=== PATIENT | female | born 1980 ===

== ENCOUNTER 2019-08-25 06:11 | Day surgery (SDC) | payer BC ==
--- NOTE | 2019-08-24 22:19 | Brief Operative Note ---
Immediate Post Operative Note Operative Note Chief Complaint: SInus pain, mostly left side S/P dental implant Pre-op Diagnosis: Chronic sinusitis S/P dental implant left maxilla. CT indicates worsening disease from day of implant to a few weeks later. Has failed a few rounds of antibiotics. Procedure: 1. Roy endoscopic sinus surgery 2. Septoplasty 3. SMR inf right turbinate 4. SMR inf left turbinate Post-op Diagnosis: same as pre-op Surgeon: Omar Fried Inventory Checker: none Additional Surgeons: none Anesthesiologist: Monique ENG Anesthesia: general Specimen: yes - Left maxillary sinus, pathology and C/S aerobic, aneroibic, fungal. Complications: none Condition: stable Fluids: D5LR Estimated Blood Loss: volume - 200 cc Drains: none Packing: Naso Sinus gel Implant(s) used?: No Omar Fried MD Aug 24, 2019 22:19
--- NOTE | 2019-08-24 22:22 | Discharge Instructions ---
Discharge Instructions Discharge Instructions Follow up with: Dr. Fried's office next week Diet: regular Resume Normal Activity?: No Activity: light activity Pneumonia Vaccine: pt refused vaccine Influenza Vaccine (Jun to Nov): pt refused vaccine Follow Up Orders ice to face x 48 hours Pt has printed pre and post op instructions Return to Work/School on: Sep 07, 2019 For Congestive Heart Failure Reminder Report to your physician any weight gain of 5 pounds or more in one week. Omar Fried MD Aug 24, 2019 22:22
--- NOTE | 2019-08-24 22:29 | Pre-Procedure Note/Attestation ---
Pre-Procedure Note/Attestation Complete Prior to Procedure Planned Procedure: bilateral Procedure Narrative: 1. Roy endoscopic sinus surgery 2. Septoplasty 3. SMR inf right turbinate 4. SMR inf left turbinate Indications for Procedure Pre-Operative Diagnosis: Chronic sinusitis S/P dental implant left maxilla. CT indicates worsening disease from day of implant to a few weeks later. Has failed a few rounds of antibiotics. Attestation I attest that I discussed the nature of the procedure; its benefits; risks and complications; and alternatives (and the risks and benefits of such alternatives ), prior to the procedure, with the patient (or the patient's legal paper sales representative). I attest that, if there was a reasonable possibility of needing a blood transfusion, the patient (or the patient's legal paper sales representative) was given the [facility] standardized written summary, pursuant to the Brendon Brianna Blood Safety Act ([place] Health and Safety Code # 1645, as amended). I attest that I re-evaluated the patient just prior to the surgery and that there has been no change in the patient's H&P, Omar Fried MD Aug 24, 2019 22:29
[2019-08-25] VITALS (10 sets, daily range): BP systolic 118–137; BP diastolic 73–82
[~2019-08-25] VITALS: Ht 167.6 cm; Wt 68.5 kg
--- NOTE | 2019-08-25 05:15 | Pre-op HX & Phy Repo 2 SIG ---
DATE OF ADMISSION: 08/25/2019 DATE OF SURGERY: 08/25/2019. INDICATION FOR PROCEDURE: The patient had a dental implant placed in the left maxilla approximately 1 month or so ago. Had a CT scan done that day, minimal if any disease. Within a few weeks, she had an extensive disease in the left side of her sinus. She ultimately last week had the implant removed. No drainage. It appeared as the capsule between the mouth and floor of the left maxillary sinus. She is having surgery to reduce the amount of infection in the sinuses and identify the proper etiologic agent and had it treated with appropriate antibiotics via culture and sensitivity as well as pathology. This is not a surgery to clean out every little disease in her sinuses and she understands that. At this point on CT scan, there is no indication of osteomyelitis. ALLERGIES: She is allergic to penicillin for which she has a rash, she does tolerate Ceftin which recently she used and does okay with it without a rash. PAST MEDICAL HISTORY: Significant for bradycardia, acute sinusitis. No arthralgia of the bilateral TMJs. SOCIAL HISTORY: She is a nonsmoker, light drinker. , 1 child. 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 PAST SURGICAL HISTORY: , breast reduction. PHYSICAL EXAMINATION: GENERAL: The patient is a 38-year-old, who is 5 feet 6 inches, 152 pounds, BMI 24.53. VITAL SIGNS: Blood pressure 120/80, temperature 98.5, pulse 72, and respiratory rate 14. This was as of last week 08/17/2019 when I saw her in the office at approximately 10:30. HEENT: Head, normocephalic. Eyes, PERRLA, EOMI. Lips and tongue normal. Septal deviation and hypertrophied right and left inferior turbinates. NECK: Normal. Some tenderness on the left maxillary sinus and swelling inside her nose more on the left than the right. CHEST: Clear. HEART: Normal S1, S2. No S3 or S4. No murmur, bruit, gallop, or rub. EXTREMITIES: Grossly normal. GENITOURINARY: Not done, not indicated for this procedure. She is followed normally by an PHOTOGRAPHIC SUPERVISOR. ASSESSMENT: She is a candidate for endoscopic sinus surgery, septoplasty, submucous resection right and inferior turbinate. PLAN: Surgery as scheduled. The patient has signed consent. Reviewed pre and postop care. Omar Fried M.D. DR: MICHAELLE JOB#: [id number] CC: NEY
[~2019-08-25 06:11] MED LIST: AMOXICILLIN500 MG ORAL; IBUPROFEN600 MG ORAL; NORCO 5-325 TA1 EACH ORAL; TYLENOL EXTRA500 MG ORAL
[2019-08-25] MEDS ORDERED: ceFAZolin sod 1 GM in D5W 55 ML IV ONE (07:15)
[2019-08-25] MEDS ORDERED: Dexamethasone 4mg/ml vial IVP ONE (07:30)
[2019-08-25] MEDS ORDERED: Sterile Water Irrig 1000ml IRRIG ONE (08:15)
[2019-08-25] MEDS ORDERED: NS Irrig 1000ml ONE (08:15)
[2019-08-25] MEDS ORDERED: LR 1000ml ONE (08:15)
[2019-08-25] MEDS ORDERED: fentaNYL 100 mcg/2 mL IV ONE ×2 (08:20→09:01)
[2019-08-25] MEDS ORDERED: Midazolam 2mg/2ml Inj ONE (08:21)
[2019-08-25] MEDS ORDERED: Lidocaine 1% 10mg/ml/Epi 0.005mg/ml 30ml vial INJ ONE (08:22)
[2019-08-25] MEDS ORDERED: Bupivacaine w/Epi 0.5% 30ml Vial INJ ONE (08:22)
[2019-08-25] MEDS ORDERED: Cocaine HCl 4% 4ml vial TOPIC ONE (08:22)
[2019-08-25] MEDS ORDERED: Lidocaine 1% MPF 10mg/ml 5ml ONE (08:55)
[2019-08-25] MEDS ORDERED: Metoclopramide 10mg/2ml Inj ONE (08:55)
[2019-08-25] MEDS ORDERED: Propofol 200mg/20ml IV ONE (08:55)
[2019-08-25] MEDS ORDERED: Dexamethasone 4mg/ml vial ONE (08:55)
[2019-08-25] MEDS ORDERED: CEPHALEXIN500 MG ORAL (09:27)
[2019-08-25] MEDS ORDERED: HYDROmorphone 1mg/ml Carpuject SUBQ PRN (09:30)
[2019-08-25] MEDS ORDERED: Metoclopramide 10mg/2ml Inj IVP PRN (09:30)
[2019-08-25] MEDS ORDERED: HYDROcodone/Acetamin 5/325 tab ORAL PRN (09:30)
--- NOTE | 2019-08-25 09:37 | Anethesia Preoperative Eval ---
Anesthesia Pre-op PMH/ROS General Date of Evaluation: Aug 25, 2019 Time of Evaluation: 08:15 Anesthesiologist: Morteza ASA Score: ASA 2 Mallampati Score Class I : Soft palate, uvula, fauces, pillars visible Class II: Soft palate, uvula, fauces visible Class III: Soft palate, base of uvula visible Class IV: Only hard plate visible Mallampati Classification: Class I Surgeon: Corky Diagnosis: Sinusitis Surgical Procedure: Roy Endo Sinus Surgery Anesthesia History: PONV Family History: no anesthesia problems Allergies: Uncoded Allergies: RAW ONIONS (Allergy, Intermediate, MIGRAINES, 08/24/19) amoxicilin (Allergy, Mild, SKIN RASH, 08/24/19) Medications: see eMAR Patient NPO?: Yes NPO Date: Aug 25, 2019 NPO Time: 00:01 Past Medical History Cardiovascular: Denies: HTN, CAD, AR, valve dz, arrhythmia, other Pulmonary: Denies: asthma, COPD, RENZO, other Gastrointestinal/Genitourinary: Denies: GERD, CRI, ESRD, other Neurologic/Psychiatric: Reports: depression/anxiety; Denies: dementia, CVA, TIA, other Endocrine: Denies: DM, hypothyroidism, steroids, other HEENT: Denies: cataract (L), cataract (R), glaucoma, ANGOON (L), ANGOON (R), other Hematology/Immune: Denies: anemia, DVT, bleeding disorder, other PSxH Narrative: breast reduction Anesthesia Pre-op Phys. Exam Physician Exam Last Vital Signs Date Time Temp Pulse Resp B/P (MAP) Pulse Ox O2 Delivery O2 Flow Rate FiO2 08/25/19 07:02 Room Air 08/25/19 06:50 97.7 66 18 118/73 98 Constitutional: NAD Neurologic: CN 2-12 intact Cardiovascular: RRR Respiratory: CTA Gastrointestinal: S/NT/ND Airway Exam Mallampati Classification 1 Mallampati Score: Class I MO: full Neck: normal TMD: 2fb ROM: full Dentures: no upper, no lower Anesthesia Pre-op A/P Labs Urine Test Test 08/25/19 06:25 Urine HCG, Qualitative Negative (NEGATIVE) Risk Assessment & Plan Assessment: Denies changes in health Plan: General LMA Status Change Before Surgery: No Pre-Antibiotics Drug: ancef Given Within 1 Hr of Incision: Yes Time Given: 08:35 Monique Pro BUILDING MOVER Aug 25, 2019 09:37
--- NOTE | 2019-08-25 09:38 | Immediate Post-Op Evaluation ---
Immediate Post-Op Evalulation Immediate Post-Op Evalulation Procedure: Roy Endo Sinus surgery Date of Evaluation: Aug 25, 2019 Time of Evaluation: 09:38 IV Fluids: 600 Blood Products: 0 Estimated Blood Loss: 200 Blood Pressure Systolic: 127 Blood Pressure Diastolic: 73 Pulse Rate: 73 Respiratory Rate: 14 O2 Sat by Pulse Oximetry: 99 Temperature (Fahrenheit): 97.8 Nausea: No Vomiting: No Complications none Patient Status: awake, reacts, patent Hydration Status: adequate Drug: ancef Given Within 1 Hr of Incision: Yes Time Given: 08:35 Monique Pro CRNA Aug 25, 2019 09:38
[2019-08-25] MEDS ORDERED: Hydromorphone 0.5mg/0.5ml inj IVP PRN (09:45)
[2019-08-25] MEDS ORDERED: fentaNYL 100 mcg/2 mL IV PRN (09:45)
[2019-08-25] MEDS ORDERED: LORazepam Inj 2mg/ml 1ml IV PRN (09:45)
--- NOTE | 2019-08-25 16:00 | Operative Note - Dictated ---
DATE OF OPERATION: 08/25/2019 SURGEON: Omar Fried M.D. SOCIAL WORK ASSISTANT: None. ANESTHESIOLOGIST: VELASQUEZ Amaya. ANESTHESIA: LMA general anesthesia, a 4 mL of 4% topical cocaine on four pledgets, two on either nostril accounted for at the end of the case as well as 15 mL, 50:50 mixture 1% lidocaine with 1:100,000 epinephrine and Sensorcaine 0.5% with to 1:200,000. INDICATION FOR SURGERY: The patient had a dental implant a month or so ago for CT scan at that time, and was done was normal within a week or two, started to have sinus disease. Subsequently, she had the implant pulled, did not resolve the problem, so she is here to drain the sinus, get culture and sensitivity. Please note that although she was told twice not to take any aspirin, Advil, or Motrin a week at that time, she did and it was decided that it is important to drain the left side of the face where symptoms are depending on the amount of bleeding and ability to clot, may or may not do much on the right side which is ultimately what happened. Preop diagnosis, mainly left-sided sinusitis. Secondary appears to be dental implant procedure. She also had another root canal done, which may have had issues as well. FINDINGS: As above. PROCEDURE: 1. Endoscopic sinus surgery. 2. Bilateral nasal antral windows. 3. Septoplasty. 4. Submucous resection, right inferior turbinate. 5. Submucous resection, left inferior turbinate. TECHNIQUE: The patient prepped and draped in the usual manner. A time-out was performed. All agreed to the procedure and equipment indicated. Initially, I injected the aforementioned lidocaine, Marcaine, and epinephrine mixture as well as placed the four nasal pledgets. I then addressed the left inferior turbinate with radiofrequency wand. A small incision was made in the anterior inferior position. Wand coated with saline gel, setting of 6, 10 seconds x2 passes. Then, outfractured with a Boies elevator. Turned my attention to the right inferior turbinate. A similar procedure. Incision made anterior inferior position with #15 blade. Radiofrequency needle placed without difficulty after coating with saline gel setting of 6, 10 seconds each pass x2. Outfractured with a Boies elevator. I then did a Saxman incision on the left-hand side elevating subperichondrial and subperiosteally the septal cartilage and bone. I then removed the lower 4 mm, leaving 1 cm inferiorly and then a gouge osteotome to remove the vomer on the left side. The flap was then sewn back into place with a 4-0 plain gut. I then turned my attention to the left maxillary sinus and ethmoid. I medialized the inferior and middle turbinate. I then used a small rat-tail to open up nasal antral window and take culture for aerobic, anaerobic, and fungal. I then cleaned out with a James. Pain attention under direct vision not to clean off the floor per se of the left maxillary sinus fistula where the implant used to be. I then addressed the ostiomeatal unit in the anterior opening of the ethmoid. The anterior opening of the ethmoid was visualized and opened with a small James. I only removed the face of the ethmoid on the left side, pus came out. I then was able to also visualize where the ostiomeatal unit would be and opened this up with a side biter. I then placed the nasal pledget back in the left nostril. I then turned my attention to the right nostril. This time, it was decided only to open the nasal antral window on the right side underneath the inferior turbinate. There was not much pus, but was suctioned clean, a little bit of debris under direct endoscopic vision. I medialized the middle turbinate on the right side and opened the entrance of the anterior ethmoid, but did not go into it. The ostiomeatal unit was widened as well with a side biter, just above the inferior turbinate about midway back. Sinonasal gel was placed in the nose one syringe about 30% on the right and 70% on the left. Please note that I decided not to do more extensive work on the right side, one because most of the disease was on the left and this was really to decompress the pus with the sinuses drained as well as to get diagnosis as to any pathology and/or culture and sensitivity. She had been taking Motrin and had some bleeding little more as well of light and therefore felt been done, I would not proceed any further. ESTIMATED BLOOD LOSS: 200 mL. COMPLICATIONS: None. DRAINS: None. COUNTS: Sponge and needle count was correct, all agreed in the room. Omar Fried M.D. DR: PETEY JOB#: [id number] CC:
== END 2019-08-25 11:35 | disposition home or self-care (01) ==
LOC: SUR 06:11
DX: J32.9 Chronic sinusitis, unspecified (principal); Z88.0 Allergy status to penicillin; F32.9 Major depressive disorder, single episode, unspecified; F41.9 Anxiety disorder, unspecified
CPT/HCPCS: 30140; 30520; 31231; 81025; 87070; 87075; 87205; J0690; J1100; J1170; J2250; J2405; J2704; J2765; J3010; J7120; 94003; 94150